=== PATIENT | female | born 1965 | race Caucasian/White ===

== ENCOUNTER 2017-04-07 09:55 | Emergency (ER) | payer OTHER ==
[~2017-04-07] VITALS: Ht 165.1 cm; Wt 88.0 kg
[~2017-04-07 09:55] MED LIST: FERR325C; LOSA50TA6 PO; PARO10TA56; PROP60CA8 PO; TOPI25TA32 PO
[2017-04-07 10:02] VITALS: BP 135/79
== END 2017-04-07 12:19 | disposition home or self-care (01) ==
LOC: ED 12:13
DX: S83.92XA Sprain of unspecified site of left knee, initial encounter (principal); G89.11 Acute pain due to trauma; R07.89 Other chest pain; M25.512 Pain in left shoulder; M79.671 Pain in right foot; W01.0XXA Fall on same level from slipping, tripping and stumbling without subsequent striking against object, initial encounter; Y93.89 Activity, other specified; Y92.488 Other paved roadways as the place of occurrence of the external cause; Y99.8 Other external cause status
CPT/HCPCS: 29505; 71020; 93005; 99284

== ENCOUNTER → 2018-02-05 | Outpatient (CLI) | payer OTHER ==
[~2018-02-05] MED LIST changes: +BUPR-86 PO; -FERR325C; +FERR325C PO; +LIDOCAINE 1%, 20ML ONE; +LIDOCAINE 1%-EPI 1:100K, 20ML ONE; -LOSA50TA6 PO; +LOSA50TA7 PO; +OMEP20TA62 PO; -PARO10TA56; +PARO10TA56 PO; +SODIUM BICARBONATE 4.0%, 5ML ONE
== END | disposition home or self-care (01) ==
LOC: CFH 09:27
PROVIDERS: ATTEND Nurse Practitioner Family
DX: C50.911 Malignant neoplasm of unspecified site of right female breast (principal); R59.1 Generalized enlarged lymph nodes
CPT/HCPCS: 19083; 19084; 19285; 38505; 77065; 88305; J3490

== ENCOUNTER 2018-02-09 14:27 | Emergency (ER) | payer OTHER ==
[~2018-02-09] VITALS: Ht 165.1 cm; Wt 129.2 kg
[~2018-02-09 14:27] MED LIST changes: -LIDOCAINE 1%, 20ML ONE; -LIDOCAINE 1%-EPI 1:100K, 20ML ONE; -SODIUM BICARBONATE 4.0%, 5ML ONE
[2018-02-09 16:36] VITALS: BP 128/73
== END 2018-02-09 16:48 | disposition home or self-care (01) ==
LOC: ED 16:42
DX: I82.621 Acute embolism and thrombosis of deep veins of right upper extremity (principal); G43.909 Migraine, unspecified, not intractable, without status migrainosus; I10 Essential (primary) hypertension; F32.9 Major depressive disorder, single episode, unspecified
CPT/HCPCS: 99284

== ENCOUNTER 2018-02-10 10:01 | Emergency (ER) | payer OTHER ==
[~2018-02-10] VITALS: Ht 165.1 cm; Wt 130.0 kg
[2018-02-10 10:23] VITALS: BP 143/83
[2018-02-10] MEDS ORDERED: HYDROcodone/APAP 5/325 TABLET ONE (10:35)
[2018-02-10] MEDS ORDERED: APIXABAN 5 MG TABLET ONE (10:46)
[2018-02-10] MEDS ORDERED: APIXABAN 5 MG TABLET PO ONE (11:00)
[2018-02-10] MEDS ORDERED: HYDROcodone/APAP 5/325 TABLET PO ONE ×2 (11:00)
== END 2018-02-10 11:45 | disposition home or self-care (01) ==
LOC: ED 10:16
DX: I82.621 Acute embolism and thrombosis of deep veins of right upper extremity (principal); I10 Essential (primary) hypertension
CPT/HCPCS: 99283

== ENCOUNTER → 2018-03-01 | Outpatient (CLI) | payer OTHER ==
[2018-03-01 12:37] LABS: BASOPHILS # (AUTO) 0.07 x10^3/uL (0-0.1); BASOPHILS % (AUTO) 1 % (0-1); EOSINOPHILS # (AUTO) 0.25 x10^3/uL (0-0.4); EOSINOPHILS % (AUTO) 4 % (1-7); LYMPHOCYTES # (AUTO) 1.88 x10^3/uL (1-3.4); LYMPHOCYTES % (AUTO) 32 % (22-44); MD NO; MEAN CORPUSCULAR HEMOGLOBIN 30.6 pg (27.0-34.8); MEAN CORPUSCULAR HGB CONC 33.8 g/dL (32.4-35.8); MEAN CORPUSCULAR VOLUME 90.5 fL (80-100); MEAN PLATELET VOLUME 8.5 fL (7.4-10.4); MONOCYTES # (AUTO) 0.58 x10^3/uL (0.2-0.8); MONOCYTES % (AUTO) 10 % (2-9); NEUTROPHILS # (AUTO) 3.03 x10^3/uL (1.8-6.8); NEUTROPHILS % (AUTO) 52 % (42-75); PLATELET COUNT 338 x10^3/uL (130-400); RED BLOOD COUNT 4.72 x10^6/uL (3.82-5.3); RED CELL DISTRIBUTION WIDTH 14.3 % (9.6-15.2)
[2018-03-01 12:46] LABS: ALBUMIN 3.5 g/dL (3.4-5.0); CHLORIDE 109 mmol/L (98-107)
[2018-03-01 13:13] LABS: % IRON SATURATION 25 % (20-55); ALANINE AMINOTRANSFERASE 40 U/L (12-78); ALKALINE PHOSPHATASE 124 U/L (45-117); ANION GAP 8 mmol/L (5-15); BILIRUBIN,TOTAL 0.2 mg/dL (0.2-1.0); CALCIUM 9.2 mg/dL (8.5-10.1); CREATININE 0.72 mg/dL (0.55-1.02); IRON LEVEL 76 mcg/dL (50-170); TOTAL IRON BINDING CAPACITY 307 mcg/dL (250-450); TRANSFERRIN 262 mg/dL (200-360)
[2018-03-01 13:14] LABS: FOLATE LEVEL > 20.0 ng/mL (3.1-17.5)
== END | disposition home or self-care (01) ==
LOC: LAB 12:08
PROVIDERS: ATTEND Internal Medicine Hematology & Oncology
DX: C50.911 Malignant neoplasm of unspecified site of right female breast (principal); C43.60 Malignant melanoma of unspecified upper limb, including shoulder; Z86.718 Personal history of other venous thrombosis and embolism
CPT/HCPCS: 36415; 80053; 82306; 82607; 82728; 82746; 83540; 83550; 84466; 85025

== ENCOUNTER → 2018-03-08 | Outpatient (CLI) | payer OTHER | END | disposition home or self-care (01) | LOC: PETCFH 08:44 | PROVIDERS: ATTEND Internal Medicine Hematology & Oncology | DX: C43.60 Malignant melanoma of unspecified upper limb, including shoulder (principal); C50.911 Malignant neoplasm of unspecified site of right female breast; Z86.718 Personal history of other venous thrombosis and embolism | CPT/HCPCS: 78816; A9552 ==

== ENCOUNTER 2018-03-22 08:52 | Day surgery (SDC) | payer OTHER ==
[~2018-03-22] VITALS: Ht 165.1 cm; Wt 130.8 kg
[~2018-03-22 08:52] MED LIST changes: +BUPIVACAINE/PF-EPI 0.5% 1:200K ONE; +BUTA1CAP30 PO; +CYCL-259 PO; +ERGO500017 PO; +HEPARIN 1,000 UNITS/ML, 10ML ONE; +ISOSULFAN BLUE 10 MG/ML, 5ML IV ONE; +LOSA100T7 PO; +PARO40TA61 PO; +PROP80TA PO; +RIVA10TA PO
[2018-03-22 09:15] VITALS: BP 123/75
[2018-03-22] MEDS ORDERED: GABAPENTIN 300 MG CAPSULE PO ONE (10:00)
[2018-03-22] MEDS ORDERED: SCOPOLAMINE PATCH, 1.5MG PATCH.TD72 TD ONE (10:00)
[2018-03-22] MEDS ORDERED: ONDANSETRON ODT 8 MG PO ONE (10:00)
[2018-03-22] MEDS ORDERED: ACETAMINOPHEN 500 MG TABLET PO ONE (10:00)
[2018-03-22] MEDS ORDERED: MIDAZOLAM 1 MG/ML, 2ML ONE (10:21)
[2018-03-22] MEDS ORDERED: FENTANYL PF 250 MCG/5ML ONE (10:22)
[2018-03-22] MEDS ORDERED: LIDOCAINE-MPF 2% ,5ML ONE (11:10)
[2018-03-22] MEDS ORDERED: PHENYLEPHRINE 10 MG/ML ONE (11:10)
[2018-03-22] MEDS ORDERED: CEFAZOLIN 1,000 MG ONE ×2 (11:10→12:11)
[2018-03-22] MEDS ORDERED: HYDROmorphone 1 MG/ML, 1ML IV PRN (11:30)
[2018-03-22] MEDS ORDERED: ONDANSETRON ODT 8 MG PO PRN (11:30)
[2018-03-22] MEDS ORDERED: DIAZEPAM 5 MG/ML, 2ML IVPush PRN (11:30)
[2018-03-22] MEDS ORDERED: PROMETHAZINE 25 MG/ML, 1ML IM PRN (11:30)
[2018-03-22] MEDS ORDERED: LABETALOL 5MG/ML, 20ML IV PRN (11:30)
[2018-03-22] MEDS ORDERED: FENTANYL PF 100 MCG/2ML IV PRN (11:30)
[2018-03-22] MEDS ORDERED: hydrALAzine 20 MG/ML, 1ML IV PRN (11:30)
[2018-03-22] MEDS ORDERED: OXYcodone 5 MG/5 ML ORAL.SOL UDC PO PRN (11:30)
[2018-03-22] MEDS ORDERED: MEPERIDINE/PF 25MG/0.5ML IVPush PRN (11:30)
[2018-03-22] MEDS ORDERED: ONDANSETRON 2MG/ML, 2ML IV PRN (11:30)
[2018-03-22] MEDS ORDERED: PROPOFOL 50 ML ONE (11:36)
[2018-03-22] MEDS ORDERED: DEXAMETHASONE 4 MG/ML, 1ML ONE (12:11)
[2018-03-22] MEDS ORDERED: PROPOFOL 10 MG/ML, 20ML ONE (12:11)
[2018-03-22] MEDS ORDERED: GLYCOPYRROLATE 0.2MG/1ML, 5ML ONE (12:11)
[2018-03-22] MEDS ORDERED: NEOSTIGMINE 1 MG/ML, 10ML ONE (12:11)
[2018-03-22] MEDS ORDERED: ROCURONIUM 10MG/ML,5ML ONE (12:11)
[2018-03-22] MEDS ORDERED: SUCCINYLCHOLINE 20 MG/ML, 10ML ONE (12:11)
[2018-03-22] MEDS ORDERED: ONDANSETRON 2MG/ML, 2ML ONE ×2 (12:11→14:29)
[2018-03-22] MEDS ORDERED: FENTANYL PF 100 MCG/2ML ONE ×2 (13:33→16:14)
[2018-03-22] MEDS ORDERED: BUPIVACAINE/PF-EPI 0.5% 1:200K ONE (14:14)
[2018-03-22] MEDS ORDERED: PROMETHAZINE 25 MG/ML, 1ML ONE (14:21)
[2018-03-22] MEDS ORDERED: LORazepam 2 MG/ML, 1ML ONE (14:38)
[2018-03-22] MEDS ORDERED: PROPOFOL 100 ML ONE (14:50)
[2018-03-22] MEDS ORDERED: LORazepam 2 MG/ML, 1ML IVPush PRN (15:00)
[2018-03-22] MEDS ORDERED: METOPROLOL 1 MG/ML, 5ML ONE (16:42)
[2018-03-22] MEDS ORDERED: LABETALOL 5MG/ML, 20ML ONE (16:42)
[2018-03-22] MEDS ORDERED: LACTATED RINGERS 1,000 ML IV SCH (19:30)
[2018-03-22] MEDS ORDERED: ONDANSETRON 2MG/ML, 2ML IVPush PRN (19:30)
[2018-03-22] MEDS ORDERED: MORPHINE SULFATE 4 MG/ML, 1ML IVPush PRN (19:30)
== END 2018-03-22 21:10 | disposition home or self-care (01) ==
LOC: OUT 08:52 → EDSTATUS 09:30 → 4NOR 19:01 → OUT 21:10
PROVIDERS: ATTEND Surgery
DX: Z45.2 Encounter for adjustment and management of vascular access device (principal); D05.11 Intraductal carcinoma in situ of right breast; R59.1 Generalized enlarged lymph nodes; F41.9 Anxiety disorder, unspecified; K21.9 Gastro-esophageal reflux disease without esophagitis; I10 Essential (primary) hypertension; Z86.718 Personal history of other venous thrombosis and embolism; Z88.0 Allergy status to penicillin
CPT/HCPCS: 19301; 36561; 38525; 38792; 71045; 76098; 88305; 88307; 88333; A9541; C1729; C1788; J0330; J0690; J1100; J1644; J2060; J2250; J2370; J2405; J2550; J2704; J2710; J3010; J3490; Q0162; 77001; G0378

== ENCOUNTER 2018-03-30 14:36 | Emergency (ER) | payer OTHER ==
[~2018-03-30] VITALS: Ht 165.1 cm; Wt 130.0 kg
[~2018-03-30 14:36] MED LIST changes: -BUPIVACAINE/PF-EPI 0.5% 1:200K ONE; -HEPARIN 1,000 UNITS/ML, 10ML ONE; -ISOSULFAN BLUE 10 MG/ML, 5ML IV ONE
[2018-03-30 15:17] LABS: BASOPHILS # (AUTO) 0.06 x10^3/uL (0-0.1); BASOPHILS % (AUTO) 1 % (0-1); EOSINOPHILS % (AUTO) 6 % (1-7); LYMPHOCYTES # (AUTO) 1.46 x10^3/uL (1-3.4); LYMPHOCYTES % (AUTO) 20 % (22-44); MD NO; MEAN CORPUSCULAR HEMOGLOBIN 30.4 pg (27.0-34.8); MEAN CORPUSCULAR HGB CONC 33.7 g/dL (32.4-35.8); MEAN CORPUSCULAR VOLUME 90.2 fL (80-100); MEAN PLATELET VOLUME 8.2 fL (7.4-10.4); MONOCYTES # (AUTO) 0.92 x10^3/uL (0.2-0.8); MONOCYTES % (AUTO) 13 % (2-9); NEUTROPHILS # (AUTO) 4.37 x10^3/uL (1.8-6.8); NEUTROPHILS % (AUTO) 61 % (42-75); PLATELET COUNT 286 x10^3/uL (130-400); RED BLOOD COUNT 4.78 x10^6/uL (3.82-5.3); RED CELL DISTRIBUTION WIDTH 14.1 % (9.6-15.2)
[2018-03-30 15:22] LABS: ALANINE AMINOTRANSFERASE 58 U/L (12-78); ALBUMIN 3.7 g/dL (3.4-5.0); ANION GAP 10 mmol/L (5-15); CALCIUM 9.4 mg/dL (8.5-10.1); CHLORIDE 110 mmol/L (98-107)
[2018-03-30 15:26] LABS: ALKALINE PHOSPHATASE 133 U/L (45-117); BILIRUBIN,TOTAL 0.4 mg/dL (0.2-1.0); TOTAL PROTEIN 7.6 g/dL (6.4-8.2); TROPONIN I < 0.015 ng/mL (0.000-0.045)
[2018-03-30] MEDS ORDERED: SODIUM CHLORIDE FLUSH 10ML SYR IVF ONE (15:30)
[2018-03-30 15:49] LABS: INTERNATIONAL NORMALIZED RATIO 1.01 (0.93-1.1); PROTHROMBIN TIME 10.7 Seconds (9.6-11.5)
[2018-03-30] MEDS ORDERED: LORazepam 2 MG/ML, 1ML ONE (16:12)
[2018-03-30] MEDS ORDERED: LORazepam 2 MG/ML, 1ML IVPush ONE (16:30)
[2018-03-30] MEDS ORDERED: OMNIPAQUE 350 MG/ML, 100ML BOTTLE ONE (16:48)
[2018-03-30 17:08] VITALS: BP 137/87
[2018-03-30 17:23] LABS: CULTURE INDICATED? YES; MICROSCOPIC INDICATED
[2018-03-30] MEDS ORDERED: CEFTRIAXONE PMX 1GM/50ML 50 ML ONE (17:46)
[2018-03-30] MEDS ORDERED: CEFTRIAXONE PMX 1GM/50ML 50 ML IV ONE (18:00)
== END 2018-03-30 19:19 | disposition home or self-care (01) ==
LOC: ED 18:00
DX: R06.00 Dyspnea, unspecified (principal); N30.00 Acute cystitis without hematuria; F41.1 Generalized anxiety disorder; I10 Essential (primary) hypertension
CPT/HCPCS: 36415; 71275; 80053; 81001; 83605; 84145; 84484; 85025; 85610; 85730; 87040; 87086; 93005; 96365; 96375; 99284; J0696; J2060; Q9967

== ENCOUNTER 2018-05-03 15:46 | Outpatient (CLI) | payer OTHER ==
[~2018-05-03 15:46] MED LIST changes: +LOSA100T14 PO; -LOSA100T7 PO; +LOSA50TA14 PO; -LOSA50TA7 PO; -RIVA10TA PO; +RIVA10TA2 PO
== END 2018-05-03 23:59 | disposition home or self-care (01) ==
LOC: RAD 15:46
PROVIDERS: ATTEND Nurse Practitioner
DX: Z02.9 Encounter for administrative examinations, unspecified (principal)

== ENCOUNTER → 2018-05-04 | Outpatient (CLI) | payer OTHER ==
[~2018-05-04] MED LIST changes: -LOSA100T14 PO; +LOSA100T7 PO; -LOSA50TA14 PO; +LOSA50TA7 PO
[2018-05-04 12:36] LABS: MICROSCOPIC INDICATED
== END | disposition home or self-care (01) ==
LOC: RAD 11:18
PROVIDERS: ATTEND Nurse Practitioner
DX: Z51.12 Encounter for antineoplastic immunotherapy (principal); C43.60 Malignant melanoma of unspecified upper limb, including shoulder; C50.811 Malignant neoplasm of overlapping sites of right female breast; D70.1 Agranulocytosis secondary to cancer chemotherapy
CPT/HCPCS: 36415; 71046; 81001; 87040; 87086

== ENCOUNTER → 2018-07-13 | Outpatient (CLI) | payer OTHER ==
[~2018-07-13] MED LIST changes: +LOSA100T14 PO; -LOSA100T7 PO; +LOSA50TA14 PO; -LOSA50TA7 PO
== END | disposition home or self-care (01) ==
LOC: CVU 13:29
PROVIDERS: ATTEND Internal Medicine Hematology & Oncology
DX: I07.1 Rheumatic tricuspid insufficiency (principal); I10 Essential (primary) hypertension; C50.811 Malignant neoplasm of overlapping sites of right female breast; C43.60 Malignant melanoma of unspecified upper limb, including shoulder; Z79.899 Other long term (current) drug therapy
CPT/HCPCS: 93306

== ENCOUNTER → 2018-10-26 | Outpatient (CLI) | payer OTHER | END | disposition home or self-care (01) | LOC: CVU 10:55 | PROVIDERS: ATTEND Internal Medicine Hematology & Oncology | DX: C50.811 Malignant neoplasm of overlapping sites of right female breast (principal); C43.60 Malignant melanoma of unspecified upper limb, including shoulder; I08.1 Rheumatic disorders of both mitral and tricuspid valves; I10 Essential (primary) hypertension | CPT/HCPCS: 93306 ==

== ENCOUNTER → 2018-11-02 | Outpatient (CLI) | payer OTHER ==
[2018-11-02 14:59] LABS: ALANINE AMINOTRANSFERASE 35 U/L (12-78); ALBUMIN 3.6 g/dL (3.4-5.0); ANION GAP 4 mmol/L (5-15); CALCIUM 9.5 mg/dL (8.5-10.1); CHLORIDE 109 mmol/L (98-107); CREATININE 0.88 mg/dL (0.55-1.02)
[2018-11-02 15:01] LABS: ALKALINE PHOSPHATASE 114 U/L (45-117); BILIRUBIN,TOTAL 0.3 mg/dL (0.2-1.0); TOTAL PROTEIN 7.5 g/dL (6.4-8.2)
== END | disposition home or self-care (01) ==
LOC: LAB 14:31
PROVIDERS: ATTEND Internal Medicine Hematology & Oncology
DX: Z51.11 Encounter for antineoplastic chemotherapy (principal); Z51.12 Encounter for antineoplastic immunotherapy; C50.811 Malignant neoplasm of overlapping sites of right female breast; C43.60 Malignant melanoma of unspecified upper limb, including shoulder; D70.1 Agranulocytosis secondary to cancer chemotherapy; L30.8 Other specified dermatitis; Z86.718 Personal history of other venous thrombosis and embolism
CPT/HCPCS: 36415; 80053

== ENCOUNTER 2018-11-15 07:54 | Outpatient (CLI) | payer OTHER | END 2018-11-15 23:59 | disposition home or self-care (01) | LOC: RAD 07:54 | PROVIDERS: ATTEND Surgery | DX: R11.0 Nausea (principal) | CPT/HCPCS: 76700 ==

== ENCOUNTER 2018-11-26 13:27 | Outpatient (CLI) | payer OTHER | END 2018-11-26 23:59 | disposition home or self-care (01) | LOC: CFH 13:27 | PROVIDERS: ATTEND Internal Medicine Hematology & Oncology | DX: C50.811 Malignant neoplasm of overlapping sites of right female breast (principal); C43.60 Malignant melanoma of unspecified upper limb, including shoulder; G93.89 Other specified disorders of brain | CPT/HCPCS: 70553; A9585 ==

== ENCOUNTER 2019-03-08 07:06 | Outpatient (CLI) | payer OTHER ==
[~2019-03-08 07:06] MED LIST changes: +APIX5TAB PO; +HERCEPTIN; +PROP60CA36 PO; -PROP60CA8 PO
== END 2019-03-08 23:59 | disposition home or self-care (01) ==
LOC: CVU 07:06 → CFH 23:59
PROVIDERS: ATTEND Internal Medicine Hematology & Oncology
DX: I08.3 Combined rheumatic disorders of mitral, aortic and tricuspid valves (principal); C43.60 Malignant melanoma of unspecified upper limb, including shoulder; Z85.3 Personal history of malignant neoplasm of breast; Z88.0 Allergy status to penicillin
CPT/HCPCS: 77063; 77067; 93306

== ENCOUNTER → 2019-03-29 | Outpatient (CLI) | payer OTHER ==
[2019-03-29 10:09] LABS: ALANINE AMINOTRANSFERASE 43 U/L (12-78); ALBUMIN 3.4 g/dL (3.4-5.0); ANION GAP 4 mmol/L (5-15); CALCIUM 9.4 mg/dL (8.5-10.1); CHLORIDE 112 mmol/L (98-107); CREATININE 0.83 mg/dL (0.55-1.02)
[2019-03-29 10:10] LABS: ALKALINE PHOSPHATASE 134 U/L (45-117); BILIRUBIN,TOTAL 0.3 mg/dL (0.2-1.0)
== END | disposition home or self-care (01) ==
LOC: LAB 09:45
PROVIDERS: ATTEND Internal Medicine Hematology & Oncology
DX: C50.811 Malignant neoplasm of overlapping sites of right female breast (principal); C43.60 Malignant melanoma of unspecified upper limb, including shoulder; D70.1 Agranulocytosis secondary to cancer chemotherapy; L30.8 Other specified dermatitis; R11.0 Nausea; E86.0 Dehydration; Z86.718 Personal history of other venous thrombosis and embolism
CPT/HCPCS: 36415; 80053

== ENCOUNTER → 2019-04-25 | Outpatient (CLI) | payer OTHER | END | disposition home or self-care (01) | LOC: RAD 13:30 → EDSTATUS 14:30 | PROVIDERS: ATTEND Internal Medicine Hematology & Oncology | DX: C43.60 Malignant melanoma of unspecified upper limb, including shoulder (principal); C50.811 Malignant neoplasm of overlapping sites of right female breast; I82.621 Acute embolism and thrombosis of deep veins of right upper extremity ==

== ENCOUNTER → 2019-10-11 | Outpatient (CLI) | payer OTHER ==
[~2019-10-11] MED LIST changes: +OMNIPAQUE 350 MG/ML, 75ML BOTTLE ONE
== END | disposition home or self-care (01) ==
LOC: CFH 12:24
PROVIDERS: ATTEND Internal Medicine Hematology & Oncology
DX: C50.811 Malignant neoplasm of overlapping sites of right female breast (principal); C43.60 Malignant melanoma of unspecified upper limb, including shoulder
CPT/HCPCS: 71260; 82565; Q9967

== ENCOUNTER 2020-05-01 12:04 | Outpatient (CLI) | payer OTHER ==
[~2020-05-01 12:04] MED LIST changes: -OMNIPAQUE 350 MG/ML, 75ML BOTTLE ONE
== END 2020-05-01 23:59 | disposition home or self-care (01) ==
LOC: CFH 12:04
PROVIDERS: ATTEND Internal Medicine Hematology & Oncology
DX: Z12.31 Encounter for screening mammogram for malignant neoplasm of breast (principal); C50.811 Malignant neoplasm of overlapping sites of right female breast; C43.60 Malignant melanoma of unspecified upper limb, including shoulder
CPT/HCPCS: 77063; 77067

== ENCOUNTER 2020-07-17 18:30 | Emergency (ER) | payer OTHER ==
[~2020-07-17] VITALS: Ht 165.1 cm; Wt 129.0 kg
[~2020-07-17 18:30] MED LIST changes: -CYCL-259 PO; +CYCL10TA2 PO
--- NOTE | 2020-07-17 18:45 | NUR ---
PT AMBULATORY TO ROOM T2 W/ C/O L FLANK PAIN STARTED AT 0400 TODAY. PT STATES SHE HAS HX 3 KIDNEY STONES AND IT FEELS SIMILAR. PAIN WORSE W/ PALPATION. PT RESTING ON GURNEY. HDZ.
--- NOTE | 2020-07-17 18:47 | NUR ---
PT ALSO STATES PINK TINGED URINE.
--- NOTE | 2020-07-17 19:01 | NUR ---
PT RESTING ON GURNEY. NADN. ALVARADO.
--- NOTE | 2020-07-17 19:56 | NUR ---
PT RESTING ON GURNEY. NADN. ALVARADO.
[2020-07-17 20:08] LABS: MICROSCOPIC AUTO
[2020-07-17 20:12] LABS: BASOPHILS % (AUTO) 1 % (0-1); EOSINOPHILS % (AUTO) 3 % (1-7); LYMPHOCYTES % (AUTO) 28 % (22-44); MEAN CORPUSCULAR HEMOGLOBIN 31.6 pg (27.0-34.8); MEAN CORPUSCULAR HGB CONC 33.9 g/dL (32.4-35.8); MEAN PLATELET VOLUME 8.5 fL (7.4-10.4); MONOCYTES % (AUTO) 9 % (2-9); NEUTROPHILS % (AUTO) 58 % (42-75); PLATELET COUNT 307 x10^3/uL (130-400); RED BLOOD COUNT 4.52 x10^6/uL (3.82-5.3); RED CELL DISTRIBUTION WIDTH 14.1 % (9.6-15.2)
[2020-07-17 20:13] LABS: MD NO
--- NOTE | 2020-07-17 20:40 | NUR ---
PT RESTING ON GURNEY. NADN. ALVARADO.
[2020-07-17 20:45] LABS: ALANINE AMINOTRANSFERASE 36 U/L (12-78); ALBUMIN 3.6 g/dL (3.4-5.0); ANION GAP 7 mmol/L (5-15); CHLORIDE 109 mmol/L (98-107); CREATININE 0.84 mg/dL (0.55-1.02)
[2020-07-17 20:46] LABS: ALKALINE PHOSPHATASE 145 U/L (45-117); BILIRUBIN,TOTAL 0.3 mg/dL (0.2-1.0); TOTAL PROTEIN 7.2 g/dL (6.4-8.2)
--- NOTE | 2020-07-17 20:49 | NUR ---
PT CHART REVIEWED AND PLACED FOR RECHECK.
--- NOTE | 2020-07-17 20:53 | NUR ---
REPORT GIVEN TO RUT COBURN RN.
--- NOTE | 2020-07-17 21:07 | NUR ---
BEDSIDE REPORT FROM ROSALIA MENDES. PT RESTING WITH NO NEEDS AT THIS TIME. CALL LIGHT IN REACH. PT WAITING FOR DISCHARGE PAPERS
[2020-07-17 21:17] VITALS: BP 145/73
--- NOTE | 2020-07-17 21:27 | NUR ---
Patient given discharge instructions and they have confirmed that they understand the instructions. Patient ambulatory with steady gait.
== END 2020-07-17 21:29 | disposition home or self-care (01) ==
LOC: ED 19:00
DX: N20.1 Calculus of ureter (principal); I10 Essential (primary) hypertension; G43.909 Migraine, unspecified, not intractable, without status migrainosus; Z86.718 Personal history of other venous thrombosis and embolism; Z88.0 Allergy status to penicillin
CPT/HCPCS: 36415; 74176; 80053; 81001; 85025; 99285